=== PATIENT | male | born 1965 | race Caucasian/White ===

== ENCOUNTER 2020-04-28 05:40 | Inpatient (IN) | payer MEDICAID, SELFPAY ==
[~2020-04-28] VITALS: Ht 175.3 cm; Wt 119.3 kg
--- NOTE | 2020-04-28 00:01 | NUR ---
PT ASKING FOR FOOD; AMBULATORY; TOLD HIM TO GO BACK TO HIS ROOM; FALL RISK; WITH BILATERAL EDEMA ON L.E Addendum: 04/29/20 at 0208 by Virginie Casas RN ASHLI NOTE
[~2020-04-28 05:40] MED LIST: ACET-8386 PO; AMLO5TAB PO; BACL10TA4 PO; LISI2.5T12 PO; ZOLP5TAB1 PO
--- NOTE | 2020-04-28 05:45 | NUR ---
PT TAKEN TO BED 3
[2020-04-28 05:57] VITALS: BP 132/89
--- NOTE | 2020-04-28 05:57 | NUR ---
Dr. Barksdale examining patient.
[2020-04-28] MEDS ORDERED: guaiFENesin DM 200/20 MG-10 ML 10 ML UDC PO ONE (06:00)
--- NOTE | 2020-04-28 06:00 | NUR ---
PT PLACED ON BEDSIDE MONITOR
--- NOTE | 2020-04-28 06:21 | NUR ---
XR AT BEDSIDE.
[2020-04-28 06:25] LABS: BASOPHILS # (AUTO) 0.1 K/uL (0.00-0.22); BASOPHILS % (AUTO) 1.1 % (0.0-2.0); EOSINOPHILS # (AUTO) 0.2 K/uL (0-0.4); EOSINOPHILS % (AUTO) 3.2 % (0.0-4.0); HEMATOCRIT 35.9 % (36-52); HEMOGLOBIN 11.9 g/dL (12.0-18.0); LYMPHOCYTES # (AUTO) 0.9 K/uL (2.0-11.5); LYMPHOCYTES % (AUTO) 16.1 % (20.5-51.1); MEAN CORPUSCULAR HEMOGLOBIN 31 pg (27-31); MEAN CORPUSCULAR HGB CONC 33 g/dL (33-37); MEAN CORPUSCULAR VOLUME 94.3 fL (80-94); MONOCYTES # (AUTO) 0.6 K/uL (0.8-1.0); MONOCYTES % (AUTO) 10.4 % (1.7-9.3); NEUTROPHILS # (AUTO) 3.8 K/uL (1.8-7.7); NEUTROPHILS % (AUTO) 69.2 % (42.2-75.2); PLATELET COUNT (AUTO) 203 K/uL (140-450); RED BLOOD CELL COUNT(AUTO) 3.81 MIL/uL (4.20-6.10); RED CELL DISTRIBUTION WIDTH 15.5 % (11.6-13.7); WHITE BLOOD COUNT (AUTO) 5.5 K/uL (4.8-10.8)
[2020-04-28 06:39] LABS: ALBUMIN 3.2 g/dL (3.4-5.0); ANION GAP 8.3 (8-16); CARBON DIOXIDE 28.9 mmol/L (21-32); POTASSIUM 3.2 mmol/L (3.5-5.1)
--- NOTE | 2020-04-28 06:39 | NUR ---
PT HAS BEEN HAVING SOB AND COUGH X 1 WEEK. COUGH NONPRODUCTIVE. HX OF CHF, LUNG SOUNDS DIMINISHED, O2 SAT 97% RA. AFEBRILE. PT HAS BILATERAL LOWER EXTREMITY SWELLING WITH + 2 PITTING EDEMA. SKIN IS WARM TO TOUCH AND PAINFUL. SKIN IS INTACT, NO DRAINGE/DISCHARGE. PT IS SUPPOSE TO TAKE LASIX OR BUMEX HOWEVER HE DOES NOT TAKE ON A DAILY BASIS, PT HAS A LOT OF WATER RETENTION. DENIES N/V. BED IN LOWEST POSITION AND SIDERAIL UP X 1. NKA HX - CHF, DVT, HLD
--- NOTE | 2020-04-28 06:57 | NUR ---
PT UNABLE TO PROVIDE UA AT THIS TIME. CUP AT BEDSIDE.
[2020-04-28] MEDS ORDERED: FUROSEMIDE 40 MG/4 ML VIAL IVP ONE (06:59)
[2020-04-28] MEDS ORDERED: FUROSEMIDE 40 MG/4 ML VIAL IVP SCH (07:02)
--- NOTE | 2020-04-28 07:08 | NUR ---
PT PROVIDED WITH A URINAL AT BEDSIDE. PT STATES HE'S UNABLE TO USE A URINAL DUE TO EXTREME SWELLING AND WATER RETENTION TO PENIS. CALLED EVS TO BRING BEDSIDE COMMODE.
--- NOTE | 2020-04-28 07:18 | NUR ---
REPORT GIVEN TO VIJAY RIVERA.
--- NOTE | 2020-04-28 07:18 | NUR ---
RECEIVED REPORT FROM MIGUEL NAGY PT IN BED AOX4 , AFIBRILE , AMBULATORY WITH STEADY GAIT , COMFORTABLE IN BED WITH STABLE VS. SIDE RAIL UP X1 AND LOCK AT LOWEST POSITION.
--- NOTE | 2020-04-28 07:20 | NUR ---
JOYCE COVID TEST DONE , MATTHEW LEAL RECEIVED SPECIMEN.
--- NOTE | 2020-04-28 07:56 | NUR ---
URINE DIP STICK RESULT SHOWED TO DR KRISHNAMURTHY.
[2020-04-28] MEDS ORDERED: ONDANSETRON 4 MG/2 ML VIAL IM/IVP PRN (08:15)
[2020-04-28] MEDS ORDERED: ACETAMINOPHEN 325 MG TAB PO PRN (08:15)
[2020-04-28] MEDS ORDERED: HYDROcodone/APAP 5/325 MG 1 TAB TAB PO PRN (08:15)
[2020-04-28] MEDS ORDERED: DOCUSATE SODIUM 100 MG GELCAP PO PRN (08:15)
[2020-04-28] MEDS ORDERED: MAG SULF 2000 MG/WATER PREMIX 50 ML IV PRN (08:25)
[2020-04-28] MEDS ORDERED: POTASSIUM CHLORIDE 10 MEQ TABER PO PRN (08:25)
--- NOTE | 2020-04-28 08:27 | NUR ---
DR TAMAYO AT BEDSIDE EVALAUTING PT.
--- NOTE | 2020-04-28 08:55 | NUR ---
Patient will be admitted to care of Dr riggins. Admited to [facility]. Will go to room 112A. Belongings list completed. Report to dong jensen.
--- NOTE | 2020-04-28 09:00 | NUR ---
RECEIVED REPORT FROM ER NURSE. PATIENT IS TRANSFERRED TO FLOOR BY RADHA. HOMELESS STATUS NOTED. CHIEF COMPLAINT OF SOB AND COUGH. DIAGNOSED WITH CHF, PLEURAL EFFUSION. RIGHT SIDE CRACKLE LUNG SOUND NOTED. BILATERAL LOWER EXTREMITIES EDEMA. STRICT I&O. VITAL SIGNS CHECKED. DRY COUGH NOTED. PATIENT IS ASLEEP, DROWSY. SWOLLEN SCROTUM NOTED. FOOT SOLE ROUGH SKIN, DIRTY. IV SITE RIGHT AC 20 G, INTACT. MRSA NARES COLLECTED AND WILL SEND TO THE LAB. PLAN OF CARE DISCUSSED. SAFETY MEASURES IN PLACE, CALL LIGHT WITHIN REACH. WILL CONTINUE TO MONITOR.
[2020-04-28 09:13] LABS: APPEARANCE,URINE CLEAR (CLEAR); BLOOD, URINE NEGATIVE (NEGATIVE); COLOR,URINE YELLOW (YELLOW); PH,URINE 6.5 (5.0-9.0); UGLUCOSE NEGATIVE (NEGATIVE)
[2020-04-28 09:14] LABS: BILIRUBIN,URINE NEGATIVE (NEGATIVE); LEUKOCYTE ESTERASE ,URINE NEGATIVE (NEGATIVE); NITRITE, URINE NEGATIVE (NEGATIVE)
[2020-04-28 09:29] LABS: BARBITURATE, URINE NEGATIVE ng/ml (NEG <=200); BENZODIAZEPINE, URINE NEGATIVE ng/mL (NEG <=200); CANNABINOID, URINE NEGATIVE ng/mL (NEG <=50); COCAINE, URINE NEGATIVE ng/mL (NEG <=300); OPIATE, URINE NEGATIVE ng/mL (NEG <=2000); PHENCYCLIDINE SCREEN,URINE NEGATIVE ng/mL (NEG <=25)
[2020-04-28] MEDS: NACL 0.9% 1,000 ML IV SCH (10:00)
--- NOTE | 2020-04-28 10:15 | NUR ---
PATIENT SLEEPING IN BED, VISIBLE CHEST RISE AND FALLS. TRYING TO GIVE HEPARIN ORDERED, AND POTASSIUM DUE TO POTASSIUM LEVEL 3.2. HOWEVER, UNABLE TO WAKE UP THE PATIENT RIGHT NOW. RR 20, O2 SAT 975% IN RA. WILL CONTINUE TO MONITOR AND GIVE MEDICATION WHEN PATIENT IS AWAKE.
--- NOTE | 2020-04-28 10:35 | NUR ---
DC PLANN[age] YRS OLD MALE HOMELESS PATIENT WAS ADMITTED FROM ER WITH A DX OF ACUTE ON CHRONIC CHF, PLEURAL EFFUSION. PT HAS A HX OF CHF, PNEUMONIA AND COPD. CXR SHOWED PROBABLE CHF WITH RT PLEURAL EFFUSION MASSIVE CARDIOMEGALY. PNEUMONIA IS NOT EXCLUDED. RAPID COVID TEST NEGATIVE. STARTED IVF, LASIX IV , AND CONTINUE HOME MEDS. CONSULTED WITH CARDIO FOR CHF. DC PLAN TO GO HOME WHEN STABLE CM TO FOLLOW Addendum: 04/30/20 at 1132 by Yanelis Meeks CM DC PLANNING: SEEN BY CARDIO AND UROLOGIST. ECHO 10-15% , CONTINUE DIURESIS WITH IV LASIX, PER DR THAPA CONTINUE FLOMAX 0.4MG IRRIGATE CATHETER PRN. VOID TRAIL ONCE STABLE. DC PLAN SW TO ASSESS FOR HOMELESSNESS. CM TO FOLLOW
[2020-04-28 11:39] LABS: PROTHROMBIN TIME 11.9 secs (10.8-13.4)
[2020-04-28 11:50] LABS: CHOL/HDL RATIO 3.1 (1-4.5); PHOSPHORUS 3.6 mg/dL (2.5-4.9); THYROID STIMULATING HORMONE 0.01 uIU/mL (0.34-3.74)
--- NOTE | 2020-04-28 12:05 | NUR ---
TRIED TO INSERT EASTMAN, PER MD ORDER. HOWEVER, DUE TO PATIENT'S SCROTUM EDEMA, FAILED TO INSERT. MD INFORMED. STRICT I&O. OFFER PATIENT URINAL TO MONITOR URINAL OUTPUT. SAFETY MEASURES IN PLACE, WILL CONTINUE TO MONITOR
[2020-04-28] MEDS ORDERED: NITROGLYCERIN 0.4 MG TAB SL PRN (13:30)
--- NOTE | 2020-04-28 13:52 | NUR ---
PATIENT IS AWAKE, POTASSIUM GIVEN FOR POTASSIUM LEVEL 3.2. EDUCATION PROVIDED, PATIENT TOLERATED WELL. SAFETY MEASURES IN PLACE, WILL CONTINUE TO MONITOR.
[2020-04-28] MEDS ORDERED: LACTULOSE 20 GM/30 ML UDC PO SCH (14:26)
--- NOTE | 2020-04-28 15:55 | NUR ---
PATIENT HAS BEEN SCREENED AND CATEGORIZED MODERATE NUTRITION RISK. PATIENT WILL BE SEEN WITHIN 3-5 DAYS OF ADMISSION. 04/30/20 05/02/[address]
[2020-04-28 16:00] VITALS: BP 123/82
[2020-04-28] MEDS: FUROSEMIDE 40 MG/4 ML VIAL IVP SCH (17:43)
--- NOTE | 2020-04-28 17:47 | NUR ---
LASIX GIVEN VIA IVP. EDUCATION PROVIDED, PATIENT TOLERATED WELL, SAFETY MEASURES IN PLACE, WILL CONTINUE TO MONITOR.
--- NOTE | 2020-04-28 18:35 | NUR ---
IV ACCIDENTLY PULLED OUT BY THE PATIENT. RESTART NEW IV, 22 G AT RIGHT HAND WITH BLOOD RETURN. PATIENT TOLERATED WELL. SAFETY MEASURES IN PLACE, WILL CONTINUE TO MONITOR.
--- NOTE | 2020-04-28 19:28 | NUR ---
ENDORSED PATIENT TO DESKTOP ADMINISTRATOR RN FOR CONTINUITY OF CARE.
--- NOTE | 2020-04-28 19:29 | NUR ---
RECEIVED REPORT FROM AM NURSE. HOMELESS STATUS NOTED.PATIENT IS SITTING UP ON BED, CAME FROM THE BATHROOM,AMBULATORY. RIGHT SIDE CRACKLE LUNG SOUND NOTED. BILATERAL LOWER EXTREMITIES EDEMA. STRICT I&O, EXPLAINED AND EDUCATED PT. DRY COUGH NOTED. SWOLLEN SCROTUM NOTED.EASTMAN CATHETER INSERTION ATTEMPTED 2X, FAILED. FOOT SOLE ROUGH SKIN, DIRTY. IV SITE RIGHT HAND G 22, INTACT. PLAN OF CARE DISCUSSED. SAFETY MEASURES IN PLACE, CALL LIGHT WITHIN REACH. WILL CONTINUE TO MONITOR.
--- NOTE | 2020-04-28 19:33 | NUR ---
BILATERAL LE SEVERE EDEMA; 4 + PITTING EDEMA ; FOOT SOLE COVERED IN BLACK DIRT AND CRACKED
[2020-04-28] MEDS: ATORVASTATIN 20 MG TAB PO SCH (21:23)
[2020-04-28] MEDS: METOPROLOL 25 MG TAB PO SCH (21:23)
--- NOTE | 2020-04-28 22:30 | NUR ---
INFORMED DR. TAFOYA THAT PT'S EASTMAN CATHETER WAS NOT INSERTED SINCE THIS A.M. [address] TAFOYA ORDERED A BLADDER SCAN BEDSIDE.AND UROLOGY CONSULT, DR. THAPA
--- NOTE | 2020-04-28 23:23 | NUR ---
BLADDER SCAN DONE= 286 ML NOTED WILL ENDORSE TO NEXT SHIFT FOE DR. TAMAYO/ DR. THAPA UROLOGIST TO KNOW.
--- NOTE | 2020-04-29 00:01 | NUR ---
PT ASKING FOR FOOD/ SNACKS; NO LIWQUID GIVEN ONLY URSZULA; HX; DM. AMBULATORY; TOLD HIM TO GO BACK TO HIS ROOM; FALL RISK; WITH BILATERAL EDEMA ON L.E
--- NOTE | 2020-04-29 02:00 | NUR ---
PT SLEEPING, COMFORTABLE IN SEMI FOWLERS POSITION, NOT IN RESPIRATORY DISTRESS; NO SOB. DENIES PAIN.
--- NOTE | 2020-04-29 04:15 | NUR ---
COMFORTABLE IN SEMI FOWLERS POSITION, SLEEPING, NOT IN RESPIRATORY DISTRESS; NO SOB. NO S/ SX'S OF PAIN.
[2020-04-29 04:23] VITALS: BP 120/76
[2020-04-29 06:19] LABS: BASOPHILS # (AUTO) 0.1 K/uL (0.00-0.22); BASOPHILS % (AUTO) 1.1 % (0.0-2.0); EOSINOPHILS # (AUTO) 0.2 K/uL (0-0.4); EOSINOPHILS % (AUTO) 3.8 % (0.0-4.0); HEMATOCRIT 38.9 % (36-52); HEMOGLOBIN 12.8 g/dL (12.0-18.0); LYMPHOCYTES % (AUTO) 17.9 % (20.5-51.1); MEAN CORPUSCULAR HEMOGLOBIN 31 pg (27-31); MEAN CORPUSCULAR HGB CONC 33 g/dL (33-37); MEAN CORPUSCULAR VOLUME 94.7 fL (80-94); MONOCYTES # (AUTO) 0.6 K/uL (0.8-1.0); NEUTROPHILS # (AUTO) 3.5 K/uL (1.8-7.7); NEUTROPHILS % (AUTO) 65.2 % (42.2-75.2); PLATELET COUNT (AUTO) 201 K/uL (140-450); RED CELL DISTRIBUTION WIDTH 15.7 % (11.6-13.7); WHITE BLOOD COUNT (AUTO) 5.4 K/uL (4.8-10.8)
[2020-04-29 06:42] LABS: MAGNESIUM 1.8 mg/dL (1.8-2.4); PHOSPHORUS 3.8 mg/dL (2.5-4.9)
[2020-04-29 06:46] LABS: ANION GAP 9.3 (8-16); CARBON DIOXIDE 29.5 mmol/L (21-32); POTASSIUM 3.8 mmol/L (3.5-5.1)
--- NOTE | 2020-04-29 06:50 | NUR ---
PT SLEEPING, MADE PT COMFORTABLE, PLACED BLANKETS NOT IN RESPIRATORY DISTRESS, WILL ENDORSE TO NEXT SHIFT
--- NOTE | 2020-04-29 07:00 | NUR ---
RECEIVED REPORT FROM COMPLAINT ANALYST NURSE PERRI-MIGUEL. PT RESTING IN BED, AOX3-CONFUSED, ON ROOM AIR WITH LEFT HAND #[id number]. SKIN INTACT WITH BLE EDEMA AND LARGE ABD. DISCUSSED PLAN OF CARE AND PT VERBALIZED UNDERSTANDING. CALL LIGHT WITHIN REACH. NO S/S OF RESPIRATORY DISTRESS OR DISCOMFORT NOTED AT THIS TIME. WILL CONTINUE TO MONITOR.
[2020-04-29 08:07] LABS: T4 (THYROXINE) 8.9 ug/dL (4.5-12.0)
[2020-04-29] MEDS: NACL 0.9% 1,000 ML IV SCH (08:14)
--- NOTE | 2020-04-29 08:25 | NUR ---
EASTMAN CATHETER PLACED BY DR. LASHELL THAPA AT BEDSIDE.
[2020-04-29] MEDS: LACTULOSE 20 GM/30 ML UDC PO SCH (09:00)
[2020-04-29] MEDS: ASPIRIN 81 MG TAB.CHEW PO SCH (09:48)
[2020-04-29] MEDS: lisinopriL 5 MG TAB PO SCH (09:49)
[2020-04-29] MEDS: METOPROLOL 25 MG TAB PO SCH ×2 (09:49→21:00)
--- NOTE | 2020-04-29 09:49 | NUR ---
PT C/O PAIN DUE TO EASTMAN CATHETER INSERTION. NORCO GIVEN AND TOLERATED WELL. CALL LIGHT WITHIN REACH. NO S/S OF RESPIRATORY DISTRESS OR DISCOMFORT NOTED AT THIS TIME. WILL CONTINUE TO MONITOR.
[2020-04-29] MEDS: FUROSEMIDE 40 MG/4 ML VIAL IVP SCH ×2 (09:50→17:49)
--- NOTE | 2020-04-29 09:50 | NUR ---
SCHEDULED MEDICATIONS GIVEN AND TOLERATED WELL. CALL LIGHT WITHIN REACH. NO S/S OF RESPIRATORY DISTRESS OR DISCOMFORT NOTED AT THIS TIME. WILL CONTINUE TO MONITOR.
--- NOTE | 2020-04-29 11:00 | NUR ---
AIR BRAKE OPERATOR NOTE: Patient's Orientation Person Situation Place Time Information Provided By PATIENT Comments SW MET PATIENT AT BEDSIDE TO COMPLETE ASSESSMENT. PATIENT WAS PACING AND WAS AGITATED. PATIENT WAS UNCOOPERATIVE WITH ASSESSMENT AND PROVIDED SARCASTIC ANSWERS. SW VERIFIED DEMOGRAPHICS WITH PATIENT. Environmental Air Specialist, Realtionship and Phone Number MIKE WHITE [phone] [facility] Power of Light Armored Vehicle Officer No Does Patient Have a POLST No Identifying Problems Homelessness/Housing Explanation Of Identifying Problems PATIENT IS A 55-YEAR-OLD MALE ADMITTED FOR ACUTE ON CHRONIC CHF. PATIENT HAS PMHX OF CHF AND COPD. PATIENT WAS REPORTED TO BE HOMELESS. SW REFUSED RESOURCES AND WAS GUARDED WITH RESPONSES. SW INQUIRED ABOUT MENTAL HEALTH AND SUBSTANCE ABUSE. PATIENT STATED THAT HE USES METHAMPHETAMINES AND ALCOHOL TWICE A WEEK BUT REFUSED SUBSTANCE ABUSE RESOURCES AND ALL OTHER RELEVANT RESOURCES. PATIENT REPORTED NOT RECEIVING GOVERNMENT AID. PATIENT WAS AGITATED DURING ASSESSMENT AND DISCONTINUED ASSESSMENT. Admitted From HOMELESS Pre-Admission Level Of Functioning Status Independent/Ambulatory Prior Resources/Services Used In Last 12 Months No Prior Resources Used Prior DME No Prior DME Used Living Situation Homeless Other Living Situation/Comment PATIENT REFUSED HOMELESS RESOUCES. Home Support No Caregiver Issues Financial Issues No Known Financial Issue Referral To The Financial Counselor Needed No Factors/Needs Senior Living/Homeless Discharge Plan Comments TENTATIVE DISCHARGE IS FOR PATIENT TO COORDINATE LIVING ARRANGEMENTS AFTER DISCHARGE. DC Plan Status Initiated
--- NOTE | 2020-04-29 12:00 | NUR ---
PT SLEEPING IN BED. CALL LIGHT WITHIN REACH. NO S/S OF RESPIRATORY DISTRESS OR DISCOMFORT NOTED AT THIS TIME. WILL CONTINUE TO MONITOR.
--- NOTE | 2020-04-29 13:00 | NUR ---
PT RESTING IN BED. CALL LIGHT WITHIN REACH. NO S/S OF RESPIRATORY DISTRESS OR DISCOMFORT NOTED AT THIS TIME. WILL CONTINUE TO MONITOR.
--- NOTE | 2020-04-29 15:00 | NUR ---
PT CONTINUES TO REST IN BED. CALL LIGHT WITHIN REACH. NO S/S OF RESPIRATORY DISTRESS OR DISCOMFORT NOTED AT THIS TIME. WILL CONTINUE TO MONITOR.
--- NOTE | 2020-04-29 15:29 | NUR ---
SCHEDULED MEDICATION HEPARIN GIVEN AND TOLERATED WELL. CALL LIGHT WITHIN REACH. NO S/S OF RESPIRATORY DISTRESS OR DISCOMFORT NOTED AT THIS TIME. WILL CONTINUE TO MONITOR.
[2020-04-29 16:00] VITALS: BP 97/70
--- NOTE | 2020-04-29 16:30 | NUR ---
ASSISTED PT TO THE BATHROOM. PT HAD A LARGE BM AND ACCIDENTALLY PULLED OUT IV. PT REQUESTING SHOWER BEFORE RE-INSERTION OF IV. CALL LIGHT WITHIN REACH. NO S/S OF RESPIRATORY DISTRESS OR DISCOMFORT NOTED AT THIS TIME. WILL CONTINUE TO MONITOR.
--- NOTE | 2020-04-29 17:49 | NUR ---
NEW IV SITE LEFT FA #22G. SCHEDULED MEDICATION LASIX GIVEN AND TOLERATED WELL. CALL LIGHT WITHIN REACH. NO S/S OF RESPIRATORY DISTRESS OR DISCOMFORT NOTED AT THIS TIME. WILL CONTINUE TO MONITOR.
--- NOTE | 2020-04-29 19:25 | NUR ---
RECEIVED BEDSIDE REPORT FROM DAY SHIFT NURSE FOR CONTINUITY OF CARE. PT IS AWAKE AND ALERT. A&O X4. ON RA WITH BREATHING UNLABORED. ASSISTED PATIENT UPWARD IN BED AND REPOSITIONED PT. PT DENIES PAIN AT THIS TIME, ONLY WITH A LOT OF MOVEMENT FROM THE PERINEAL REGION. EASTMAN CATHETER IN PLACE, DAY SHIFT NURSE EMPTIED 1700 OUTPUT AT SHIFT REPORT. SKIN IS WARM, DRY, AND INTACT. PENILE, SCROTAL, ABDOMINAL, AND BILATERAL LEG SWELLING. STRICT I&O IN PLACE. IV IS IN THE LEFT FOREARM 22 GAUGE RUNNING TKO AT 5 ML PER HOUR. PLAN OF CARE DISCUSSED. BED IS IN THE LOWEST POSITION AND CALL LIGHT IS WITHIN REACH. Addendum: 04/29/20 at 1999 by Elizabet Cortez RN FLUIDS RUNNING TKO AT 10 ML PER HOUR PER ORDER; NOT 5 ML PER HOUR.
--- NOTE | 2020-04-29 21:20 | NUR ---
PT IS AWAKE. PERFORMED A PHYSICAL ASSESSMENT ON PT. PITTING EDEMA IN THE LOWER EXTREMITIES, PERINEAL, SCROTAL, AND ABDOMEN REGION. PT WAS CALM AND NO DISTRESS NOTED. PT DENIES PAIN. WILL CONTINUE TO MONITOR. EASTMAN CATHETER URINE OUTPUT IS NOW 500 ML.
--- NOTE | 2020-04-29 21:55 | NUR ---
DID NOT ADMINISTER METOPROLOL 12.5 MG BECAUSE THE PT'S BP WAS 110/65 AND HR WAS 91. PT IS STABLE AT THIS TIME.
--- NOTE | 2020-04-29 23:00 | NUR ---
PT STATED HE HAD A FALL RECENTLY OUTSIDE OF THE HOSPITAL AND SOMETIMES WALKS WITH A CANE. PT WAS PLACED ON FALL PRECAUTIONS. CHANGED GOWN TO YELLOW GOWN, PUT ON YELLOW SOCKS, PLACED ARMBAND ON PT, AND PLACED SIGNS ON THE BULLARD FOR FALL PRECAUTION. WILL CONTINUE TO MONITOR PT FOR UNSTEADY GAIT. PT IN BED IN SEMI FOWLERS POSITION NO DISTRESS NOTED.
[2020-04-29] MEDS: ATORVASTATIN 20 MG TAB PO SCH (23:06)
[2020-04-30] VITALS: BP 117/74
--- NOTE | 2020-04-30 00:30 | NUR ---
VS WERE TAKEN AND TEMP WAS 99.0 DEGREES FAHRENHEIT. IMPLEMENTED COOLING MEASURES FOR PT. PLACED ICE PACKS BEHIND NECK AND UNDERNEATH ARMPITS. BLANKETS WERE REMOVED. HEATER IN THE ROOM WAS SWITCHED TO COOL AIR. WILL CONTINUE TO MONITOR FOR FEVER.
--- NOTE | 2020-04-30 02:30 | NUR ---
PT IS AWAKE AND ALERT. ASSISTED PT IN REPOSITIONING IN BED. PT STATES HE NO LONGER HAS PAIN FROM THE PERINEAL REGION. URINE OUTPUT WAS 1600 ML AND EASTMAN WAS EMPTIED. IV IS PATENT AND INFUSING NS TKO. PT WAS GIVEN JELLO AND PUDDING REQUESTED. NEEDS HAVE BEEN MET.
--- NOTE | 2020-04-30 04:30 | NUR ---
ROUNDED ON PT. PT IS IN SEMI FOWLERS POSITION, AWAKE. NO COMPLAINTS AT THIS TIME. PT DENIES PAIN. CHEST RISE AND FALL IS SYMMETRICAL. BREATHING IS UNLABORED. BED IS IN THE LOWEST POSITION AND CALL LIGHT IS WITHIN REACH.
--- NOTE | 2020-04-30 06:15 | NUR ---
PT IS ASLEEP. NO DISTRESS AT THIS TIME AND NO PAIN NOTED. IV IS PATENT AND INFUSING. EASTMAN IS PATENT AND IN PLACE. FALL PRECAUTIONS ARE IN PLACE. BED IS IN THE LOWEST POSITION. PT IS STABLE.
[2020-04-30 06:59] LABS: BASOPHILS # (AUTO) 0.1 K/uL (0.00-0.22); EOSINOPHILS # (AUTO) 0.2 K/uL (0-0.4); EOSINOPHILS % (AUTO) 3.6 % (0.0-4.0); HEMATOCRIT 37.6 % (36-52); HEMOGLOBIN 12.4 g/dL (12.0-18.0); LYMPHOCYTES # (AUTO) 1.3 K/uL (2.0-11.5); LYMPHOCYTES % (AUTO) 20.3 % (20.5-51.1); MEAN CORPUSCULAR HEMOGLOBIN 31 pg (27-31); MEAN CORPUSCULAR HGB CONC 33 g/dL (33-37); MONOCYTES # (AUTO) 0.6 K/uL (0.8-1.0); MONOCYTES % (AUTO) 10.1 % (1.7-9.3); NEUTROPHILS # (AUTO) 4.1 K/uL (1.8-7.7); PLATELET COUNT (AUTO) 213 K/uL (140-450); RED CELL DISTRIBUTION WIDTH 15.5 % (11.6-13.7); WHITE BLOOD COUNT (AUTO) 6.3 K/uL (4.8-10.8)
--- NOTE | 2020-04-30 07:18 | NUR ---
ENDORSED PT TO DAY SHIFT NURSE FOR CONTINUITY OF CARE. PT IS STABLE AT THIS TIME. PLAN OF CARE DISCUSSED.
--- NOTE | 2020-04-30 07:20 | NUR ---
RECEIVED PATIENT FROM NIGHT NURSE. PATIENT SLEEPING IN BED BUT AROUSABLE. PATIENT IS ALERT AND RESPONSIVE. RESP EVEN AND UNLABORED ON ROOM AIR. DENIES OF PAIN OR DISTRESS AT THIS TIME. EASTMAN CATH NOTED IN PLACE. REPORT OF SWELLING TO LOWER BILATERAL, SCROTAL AND PENILE SWELLING. STRICT I/O. IV IN LFA TKO AT THIS TIME. FALL PRECAUTION OBSERVED. PLAN OF CARE DISCUSSED WITH PATIENT. PATIENT VERBALIZED UNDERSTANDING. SAFETY MEASURES IN PLACE. CALL LIGHT WITHIN REACH. WILL CONTINUE TO MONITOR.
[2020-04-30 07:21] LABS: ANION GAP 10.3 (8-16); CARBON DIOXIDE 33.7 mmol/L (21-32)
[2020-04-30 07:26] LABS: MAGNESIUM 1.9 mg/dL (1.8-2.4); PHOSPHORUS 3.6 mg/dL (2.5-4.9)
[2020-04-30 08:00] VITALS: BP 108/79
[2020-04-30] MEDS: NACL 0.9% 1,000 ML IV SCH (08:14)
[2020-04-30] MEDS: FUROSEMIDE 40 MG/4 ML VIAL IVP SCH ×2 (08:31→17:46)
[2020-04-30] MEDS: ASPIRIN 81 MG TAB.CHEW PO SCH (08:31)
[2020-04-30] MEDS: METOPROLOL 25 MG TAB PO SCH ×2 (08:32→21:53)
[2020-04-30] MEDS: LACTULOSE 20 GM/30 ML UDC PO SCH (08:33)
--- NOTE | 2020-04-30 08:47 | NUR ---
MORNING ROUTINE MEDICATIONS GIVEN. PATIENT TOLERATED WELL. EDEMA NOTED TO LOWER BILATERAL LEGS, NON PITTING, SCROTAL SWELL NOTED, LARGE ABDOMEN SOFT TO TOUCH NONTENDER. PATIENT DENIES OF PAIN AT THIS TIME. EASTMAN CATH IN PLACE. LFA 22 INFUSING WELL NS 10ML/HR. PATIENT IS UP IN BED EATING BREAKFAST. CALL LIGHT WITHIN REACH. WILL CONTINUE TO MONITOR. Addendum: 04/30/20 at 0920 by Tania Copeland RN CORRECTION: PITTING EDEMA NOTED TO LOWER BILATERAL LEGS.
[2020-04-30] MEDS ORDERED: LIDOCAINE OINTMENT 5% 35 GM TUBE TP SCH (09:30)
[2020-04-30] MEDS: lisinopriL 5 MG TAB PO SCH (09:56)
--- NOTE | 2020-04-30 11:09 | NUR ---
PATIENT IN BED SLEEPING. RESP EVEN AND UNLABORED ON ROOM AIR, CHEST RISING. PENDING PARACENTESIS BY BEDSIDE. NO NOTED ACUTE S/S DISTRESS AT THIS TIME. CALL LIGHT WITHIN REACH. WILL CONTINUE TO MONITOR.
--- NOTE | 2020-04-30 12:01 | NUR ---
DR ZAMORA AT BEDSIDE FOR US GUIDED PARACENTESIS.
[2020-04-30] MEDS ORDERED: SPIRONOLACTONE 50 MG TAB PO SCH (12:30)
--- NOTE | 2020-04-30 12:43 | NUR ---
US GUIDED PARACENTESIS DONE. 3.75L WITHDREW. SPECIMEN SENT TO LABS FOR STUDIES. PATIENT SLEEPING IN BED. NO NOTED DISTRESS AT THIS TIME. CALL LIGHT WITHIN REACH. WILL CONTINUE TO MONITOR.
[2020-04-30] MEDS ORDERED: ALBUMIN HUMAN 25% 100 ML IV SCH (12:45)
--- NOTE | 2020-04-30 14:04 | NUR ---
PATIENT ASSISTED TO THE BATHROOM PER REQUEST. PATIENT GETS FRUSTRATED EASILY D/T SWOLLEN SCROTUM WHICH IS CAUSING HIM MUCH DISCOMFORT. PATIENT CAN BE REDIRECTED AND ABLE TO FOLLOW COMMANDS. PATIENT WAS ASSISTED BACK TO BED AND NOW RESTING. ROUTINE MEDICATIONS GIVEN ORDERED. CALL LIGHT WITHIN REACH. WILL CONTINUE TO MONITOR.
[2020-04-30 16:00] VITALS: BP 133/82
--- NOTE | 2020-04-30 18:20 | NUR ---
PATIENT IS FRUSTRATED EVERY TIME HE MOVES AND THE EASTMAN IS CAUSING HIM DISCOMFORT. PATIENT IS REQUESTING TO HAVE HIS EASTMAN CATHETER OUT. PATIENT WAS MADE AWARE OF HIS EDEMA AND HE'S TAKING LASIX THAT MAY CAUSE HIM TO USE THE BATHROOM MORE OFTEN, SINCE HIS SCROTAL EDEMA IS ALSO CAUSING HIS DISCOMFORT. PATIENT STATED HE WILL BE ABLE TO GET UP AND USE THE BATHROOM NEEDED. HE JUST WANTS THE CATHETER OUT. PAGED DR TAFOYA ABOUT PATIENT'S CONCERN. WILL CONTINUE TO MONITOR.
--- NOTE | 2020-04-30 18:57 | NUR ---
RECEIVED ORDER TO DISCONTINUE EASTMAN CATHETER. ORDER CARRIED OUT.
--- NOTE | 2020-04-30 19:18 | NUR ---
PATIENT DECIDED NOT TO HAVE HIS EASTMAN DISCONTINUED. PATIENT STATED HE WILL LEAVE IT IN PLACE BECAUSE HE WANTS TO SLEEP AND NOT HAVING TO GET UP TO USE THE BATHROOM. ENDORSED PT TO NIGHT NURSE. PATIENT IN STABLE CONDITION.
--- NOTE | 2020-04-30 19:25 | NUR ---
RECEIVED CONTINUITY OF CARE FROM AM NURSE. PT IS STILL ON THE SIDE OF BED, IN STABLE CONDITION, BREATHING SPONTANEOUSLY ON ROOM AIR. PT IS A/OX4, IV IS PATENT, ASYMPTOMATIC, INTACT. SKIN IS WARM, DRY, INTACT. LUNGS ARE CTA. ALL STAFF TO OBSERVE STRICT I/O. ORIENTED PT TO STAFF AND CALL LIGHT. SAFETY PRECAUTIONS IN PLACE.
--- NOTE | 2020-04-30 21:05 | NUR ---
ADMINISTERED SCHEDULED MEDICATION. EDUCATION WAS GIVEN INCLUDING SIDE EFFECTS. PT TOLERATED IT WELL.
[2020-04-30 21:18] LABS: GLUCOSE,BODY FLUID 162 mg/dL
[2020-04-30] MEDS: ATORVASTATIN 20 MG TAB PO SCH (21:53)
[2020-04-30 22:14] LABS: ALBUMIN,BODY FLUID 1.4 g/dL
--- NOTE | 2020-04-30 23:11 | NUR ---
PT CALLED FOR A SNACK AND WAS PROVIDED. EMPTIED EASTMAN CATHETER BAG OF 2400ML.
[2020-05-01] VITALS: BP 116/50
--- NOTE | 2020-05-01 01:12 | NUR ---
PT ASKED FOR ICE CHIPS. GAVE HIM ICE CHIPS. PT IS IN STABLE [id number].
--- NOTE | 2020-05-01 03:12 | NUR ---
ADMINISTERED SCHEDULED MED. EDUCATION WAS GIVEN. PT TOLERATED IT WELL.
--- NOTE | 2020-05-01 05:16 | NUR ---
PT IS SLEEPING. NO SIGNS OF DISTRESS AT THIS TIME.
[2020-05-01 05:49] LABS: BASOPHILS % (AUTO) 0.8 % (0.0-2.0); EOSINOPHILS # (AUTO) 0.2 K/uL (0-0.4); EOSINOPHILS % (AUTO) 3.7 % (0.0-4.0); HEMATOCRIT 35.2 % (36-52); HEMOGLOBIN 11.8 g/dL (12.0-18.0); LYMPHOCYTES # (AUTO) 1.2 K/uL (2.0-11.5); LYMPHOCYTES % (AUTO) 20.5 % (20.5-51.1); MEAN CORPUSCULAR HEMOGLOBIN 31 pg (27-31); MEAN CORPUSCULAR HGB CONC 33 g/dL (33-37); MEAN CORPUSCULAR VOLUME 93.1 fL (80-94); MONOCYTES # (AUTO) 0.6 K/uL (0.8-1.0); MONOCYTES % (AUTO) 9.9 % (1.7-9.3); NEUTROPHILS # (AUTO) 3.7 K/uL (1.8-7.7); NEUTROPHILS % (AUTO) 65.1 % (42.2-75.2); PLATELET COUNT (AUTO) 195 K/uL (140-450); RED BLOOD CELL COUNT(AUTO) 3.78 MIL/uL (4.20-6.10); RED CELL DISTRIBUTION WIDTH 15.5 % (11.6-13.7); WHITE BLOOD COUNT (AUTO) 5.8 K/uL (4.8-10.8)
[2020-05-01 07:09] LABS: ANION GAP 5.3 (8-16); CARBON DIOXIDE 32.7 mmol/L (21-32); CREATININE 0.9 mg/dL (0.6-1.3)
[2020-05-01 07:15] LABS: MAGNESIUM 1.8 mg/dL (1.8-2.4); PHOSPHORUS 4.1 mg/dL (2.5-4.9)
--- NOTE | 2020-05-01 07:30 | NUR ---
RECEIVED REPORT FROM [facility] NURSE, ASSUMED CARE. PT RESTING COMFORTABLY WITH NO ADVERSE REACTIONS NOTED AND/OR REPORTED. PERSONAL BELONGINGS, BEDSIDE TABLE, CALL LIGHT WITHIN REACH. WILL CONTINUE TO MONITOR.
--- NOTE | 2020-05-01 07:52 | NUR ---
ENDORSED CARE TO AM NURSE. PT IS IN STABLE CONDITION.
[2020-05-01] MEDS ORDERED: TAMSULOSIN 0.4 MG CAP PO SCH (08:30)
[2020-05-01] MEDS: NACL 0.9% 1,000 ML IV SCH (08:53)
[2020-05-01] MEDS: FUROSEMIDE 40 MG/4 ML VIAL IVP SCH (08:53)
[2020-05-01] MEDS: ASPIRIN 81 MG TAB.CHEW PO SCH (08:53)
[2020-05-01] MEDS: LACTULOSE 20 GM/30 ML UDC PO SCH (08:54)
[2020-05-01] MEDS: lisinopriL 5 MG TAB PO SCH (08:55)
[2020-05-01] MEDS: METOPROLOL 25 MG TAB PO SCH (08:55)
[2020-05-01 08:59] LABS: APPEARANCE,UNSPUN,BODY FLUID SLIGHTLY HAZY (CLEAR); SPECIMENTYPE,BODY FLUID PARACENTESIS
[2020-05-01 09:00] LABS: APPEARANCE,SPUN,BODY FLUID CLEAR (CLEAR); COLOR,BODY FLUID PINK (LT YELLOW); TOTAL VOLUME,BODY FLUID 3100 mL
[2020-05-01] MEDS ORDERED: SPIRONOLACTONE 50 MG TAB PO SCH (09:00)
--- NOTE | 2020-05-01 09:02 | NUR ---
DISCONTINUED FC, PT TOLERATED WELL.
[2020-05-01 09:06] LABS: POLYNUCLEAR, BODY FLUID 2 %; RBC, BODY FLUID 1139 /cu. mm.; WBC, BODY FLUID 20 /cu. mm.
[2020-05-01] MEDS ORDERED: LISI10TA11 PO (10:07)
[2020-05-01] MEDS ORDERED: ATOR20TA40 PO (10:07)
[2020-05-01] MEDS ORDERED: TAMS0.4C96 PO (10:07)
[2020-05-01] MEDS ORDERED: METO25TA PO (10:07)
[2020-05-01] MEDS ORDERED: SPIR50TA PO (10:07)
[2020-05-01 12:55] VITALS: BP 100/56
[2020-05-01] MEDS ORDERED: FLU VACCINE QS2020-21 0.5 ML SYR IMVAC PRN (13:10)
--- NOTE | 2020-05-01 14:00 | NUR ---
PT DISCHARGED WITH BELONGINGS, DISCHARGE PAPERWORK SIGNED, HOMELESS WAIVER SIGNED, PT REFUSING HOMELESS SERVICES. BUS PASS GIVEN FOR TRANSPORT.
== END 2020-05-01 14:00 | disposition home or self-care (01) | DRG 812 ==
LOC: MED 05:40 → MTU 08:20 → OBSVTOIN 04-29 15:40
PROC: 0W9G3ZZ Drainage of Peritoneal Cavity, Percutaneous Approach (ICD-10-PCS; principal; 2020-04-30)
DX: T43.621A Poisoning by amphetamines, accidental (unintentional), initial encounter (principal); J69.0 Pneumonitis due to inhalation of food and vomit; I50.43 Acute on chronic combined systolic (congestive) and diastolic (congestive) heart failure; G92 Toxic encephalopathy; E44.1 Mild protein-calorie malnutrition; J44.9 Chronic obstructive pulmonary disease, unspecified; K72.90 Hepatic failure, unspecified without coma; I11.0 Hypertensive heart disease with heart failure; E87.6 Hypokalemia; Z20.828 Contact with and (suspected) exposure to other viral communicable diseases; E66.9 Obesity, unspecified; I27.20 Pulmonary hypertension, unspecified; I07.1 Rheumatic tricuspid insufficiency; Z68.38 Body mass index [BMI] 38.0-38.9, adult; Z59.0 Homelessness; Z87.891 Personal history of nicotine dependence; Z79.899 Other long term (current) drug therapy; Z83.3 Family history of diabetes mellitus; Z82.49 Family history of ischemic heart disease and other diseases of the circulatory system; Y92.89 Other specified places as the place of occurrence of the external cause; Z71.51 Drug abuse counseling and surveillance of drug abuser
CPT/HCPCS: 49083; 96374; 99285; G0378; 36415; 71045; 76705; 80048; 80053; 80305; 81003; 82140; 82150; 82945; 83036; 83615; 83690; 83735; 83880; 84100; 84134; 84157; 84436; 84443; 84484; 85025; 85610; 85730; 87070; 87075; 87081; 87116; 87190; 87205; 87206; 89051; 93005; 93925; 93970; 97116; 97161-GP; J1644; J1940; J2001; J7030; P9046; Q0092

== ENCOUNTER 2021-11-30 14:37 | Inpatient (IN) | payer MEDICAID ==
[~2021-11-30] VITALS: Ht 175.3 cm; Wt 113.4 kg
[~2021-11-30 14:37] MED LIST changes: -ACET-8386 PO; -AMLO5TAB PO; +ATOR20TA40 PO; -BACL10TA4 PO; +LISI-486 PO; -LISI2.5T12 PO; +METO25TA PO; +SPIR50TA PO; +TAMS0.4C96 PO; -ZOLP5TAB1 PO
[2021-11-30 14:57] VITALS: BP 133/84
--- NOTE | 2021-11-30 15:06 | NUR ---
PT W/C ASSISTED TO BED 8.
--- NOTE | 2021-11-30 15:49 | NUR ---
LAB AT BEDSIDE
[2021-11-30 16:10] LABS: BASOPHILS % (AUTO) 0.1 % (0.0-2.0); EOSINOPHILS # (AUTO) 0.2 K/uL (0-0.4); EOSINOPHILS % (AUTO) 3.5 % (0.0-4.0); HEMATOCRIT 38.6 % (36-52); HEMOGLOBIN 12.6 g/dL (12.0-18.0); LYMPHOCYTES # (AUTO) 0.8 K/uL (2.0-11.5); LYMPHOCYTES % (AUTO) 12.1 % (20.5-51.1); MEAN CORPUSCULAR HEMOGLOBIN 30 pg (27-31); MEAN CORPUSCULAR HGB CONC 33 g/dL (33-37); MEAN CORPUSCULAR VOLUME 92.4 fL (80-94); MONOCYTES # (AUTO) 0.6 K/uL (0.8-1.0); MONOCYTES % (AUTO) 10.2 % (1.7-9.3); NEUTROPHILS # (AUTO) 4.7 K/uL (1.8-7.7); NEUTROPHILS % (AUTO) 74.1 % (42.2-75.2); PLATELET COUNT (AUTO) 235 K/uL (140-450); RED BLOOD CELL COUNT(AUTO) 4.17 MIL/uL (4.20-6.10); RED CELL DISTRIBUTION WIDTH 16.1 % (11.6-13.7); WHITE BLOOD COUNT (AUTO) 6.4 K/uL (4.8-10.8)
--- NOTE | 2021-11-30 16:25 | NUR ---
PATIENT IS LAYING IN BED SLEEPING WITH NO SIGNS OF DISTRESS. ALL NEEDS MET.
[2021-11-30 16:32] LABS: ALBUMIN 3.6 g/dL (3.4-5.0); ANION GAP 11.9 (8-16); CARBON DIOXIDE 28.2 mmol/L (21-32); CREATININE 1.6 mg/dL (0.6-1.3); POTASSIUM 4.1 mmol/L (3.5-5.1); TOTAL BILIRUBIN 0.6 mg/dL (0.0-1.0)
[2021-11-30] MEDS ORDERED: MORPHINE SULFATE 4 MG/ML SYR IVP ONE (18:05)
[2021-11-30] MEDS ORDERED: FUROSEMIDE 100 MG/10 ML VIAL IVP ONE (18:05)
[2021-11-30] MEDS ORDERED: NACL 0.9% 1,000 ML IV SCH (18:15)
--- NOTE | 2021-11-30 18:29 | NUR ---
Patient will be admitted to care of DR TAMAYO. Admited to TELE. Will go to room 120B. Belongings list completed. Report to SHAMEKA.
--- NOTE | 2021-11-30 18:40 | NUR ---
PATIENT WAS ASSISTED TO THE RESTROOM VIA WHEELCHAIR.
--- NOTE | 2021-11-30 19:07 | NUR ---
NOTIFIED DR TAMAYO OF PATIENTS REFUSAL OF CT SCAN.
--- NOTE | 2021-11-30 19:15 | NUR ---
REPORT RECIEVED FROM [place] NURSE CLINICIAN. PT IS ADMITTED TO TELE 120B. PT IS ON MONITOR .
--- NOTE | 2021-11-30 19:19 | NUR ---
REPORT GIVEN TO MUSTAPHA OLIVO FOR TRANSFER OF CARE.
--- NOTE | 2021-11-30 19:25 | NUR ---
PT TRANSFERED VIA [employer] ON TELE MONITOR . REPORT TO BE GIVEN TO SHAMEKA RIVERA AT BEDSIDE.
--- NOTE | 2021-11-30 19:26 | NUR ---
The patient's care was reviewed and supervised by Debra Narvaez RN.
--- NOTE | 2021-11-30 19:45 | NUR ---
PATIENT WAS BROUGHT TO THE UNIT FROM ER VIA GURNEY AAOX3. ON ROOM AIR. NO S/S OF RESPIRATORY DISTRESS. AMBULATORY. LUNGS CLEAR ON AUSCULTATION. BOWEL SOUNDS PRESENT IN ALL 4 QUADRANT. SKIN IS INTACT. PITTING EDEMA +2 PRESENT TO BILATERAL LOWER EXTREMITY. ALL SAFETY PRECAUTIONS ARE IN PLACE. CALL LIGHT WITHIN REACH. NO COMPLAINTS OF PAIN AT THIS TIME. MRSA SCREENING DONE. WILL CONTINUE TO MONITOR PT.
[2021-11-30] MEDS ORDERED: MECLIZINE 25 MG TAB PO SCH (21:00)
--- NOTE | 2021-11-30 21:34 | NUR ---
DR. TAMAYO MADE AWARE REGARDING PT REFUSED CT HEAD.
[2021-12-01] VITALS: BP 106/70
--- NOTE | 2021-12-01 01:39 | NUR ---
PATIENT ASKED FOR FOOD, OFFERED SANDWICH AND JUICE, WAS THANKFUL.
[2021-12-01 04:00] VITALS: BP 117/73
[2021-12-01 05:16] LABS: BASOPHILS # (AUTO) 0.1 K/uL (0.00-0.22); BASOPHILS % (AUTO) 1.2 % (0.0-2.0); EOSINOPHILS # (AUTO) 0.3 K/uL (0-0.4); EOSINOPHILS % (AUTO) 5.2 % (0.0-4.0); HEMATOCRIT 40.6 % (36-52); HEMOGLOBIN 13.2 g/dL (12.0-18.0); LYMPHOCYTES # (AUTO) 1.1 K/uL (2.0-11.5); LYMPHOCYTES % (AUTO) 18.3 % (20.5-51.1); MEAN CORPUSCULAR HEMOGLOBIN 30 pg (27-31); MEAN CORPUSCULAR HGB CONC 33 g/dL (33-37); MEAN CORPUSCULAR VOLUME 93.5 fL (80-94); MONOCYTES # (AUTO) 0.7 K/uL (0.8-1.0); MONOCYTES % (AUTO) 11.2 % (1.7-9.3); NEUTROPHILS # (AUTO) 3.9 K/uL (1.8-7.7); NEUTROPHILS % (AUTO) 64.1 % (42.2-75.2); PLATELET COUNT (AUTO) 216 K/uL (140-450); RED BLOOD CELL COUNT(AUTO) 4.34 MIL/uL (4.20-6.10); WHITE BLOOD COUNT (AUTO) 6.1 K/uL (4.8-10.8)
[2021-12-01 05:36] LABS: ANION GAP 12.7 (8-16); CARBON DIOXIDE 29.5 mmol/L (21-32); CREATININE 1.4 mg/dL (0.6-1.3); POTASSIUM 4.2 mmol/L (3.5-5.1)
--- NOTE | 2021-12-01 07:27 | NUR ---
PATIENT IS STABLE. BEDSIDE ENDORSEMENT GIVEN TO AM NURSE FOR CONTINUITY OF CARE.
--- NOTE | 2021-12-01 07:28 | NUR ---
RECEIVED REPORT FROM MOTOR VEHICLE DISPATCHER NURSE PATIENT LYING DOWN IN BED SLEEPING, AROUSABLE BY VOICE. NO DISTRESS NOTED. DENIES ANY PAIN, DIZZINESS. IV SITE INTACT, PATENT, AND INFUSING IVF PER MD ORDERS. REVIEWED PLAN OF CARE WITH PATIENT. VERBALIZED UNDERSTANDING. SAFETY MEASURES IN PLACE, CALL LIGHT WITHIN REACH. WILL CONTINUE TO MONITOR.
[2021-12-01 08:00] VITALS: BP 110/62
[2021-12-01] MEDS ORDERED: MAG SULF 2000 MG/WATER PREMIX 50 ML IV PRN (09:25)
[2021-12-01] MEDS ORDERED: POTASSIUM CHLORIDE 10 MEQ TABER PO PRN (09:25)
[2021-12-01] MEDS ORDERED: MECLIZINE 25 MG TAB PO PRN (09:25)
--- NOTE | 2021-12-01 09:54 | NUR ---
PATIENT LYING DOWN IN BED SLEEPING, AROUSABLE BY VOICE. NO DISTRESS NOTED. DENIES DIZZINESS. WILL CONTINUE TO MONITOR.
--- NOTE | 2021-12-01 11:42 | NUR ---
PATIENT HAS BEEN SCREENED AND CATEGORIZED MODERATE NUTRITION RISK. PATIENT WILL BE SEEN WITHIN 3-5 DA[address] OF ADMISSION. AT[address]
[2021-12-01 12:00] VITALS: BP 110/59
--- NOTE | 2021-12-01 12:30 | NUR ---
MIKE ATTEMPTED TO MEET WITH PATIENT AT BEDSIDE. PATIENT STRUGGLED TO ANSWER SW PROMPTS. MIKE REDIRECTED PATIENT SEVERAL TIMES, HOWEVER PATIENT CONTINUED TO STRUGGLE WITH SW PROMPTS. CAME IN TO MEET WITH PATIENT. MIKE WILL FOLLOW UP Addendum: 12/06/21 at 1553 by [place] MARTIN MIKE FIELDED CALL FROM PATIENTS COUSIN, KATHY CHRISTENSEN. MIKE PROVIDE MR. YUAN WITH AN UPDATE ON PATIENT DC PLANS . MR YUAN WAS REQUESTING THAT PATIENT BE HELD OVER [place] HE WAS [place] TOWN AND WAS UNABLE TO MAKE ARRANGEMENTS. MIKE EXPLAINED TO MR YUAN THAT PATIENT WAS MEDICALLY CLEARED AND HAD BEEN CLEARED BY PSYCH FOR DC. MIKE PROVIDED MR. YUAN WITH SUBSTANCE USE/ALCOHOL RESOURCES,HOMELESS RESOURCES, EMERGENCY ASSISTANCE, WELL, MENTAL HEALTH RESOURCES VIA EMAIL, REQUESTED BY MR. CHRISTENSEN. MR YUAN REPORTED THAT HE WOULD REFER TO RESOURCES AND IDENTIFY PLACEMENT FOR PATIENT TO BE DC TO. MR CHRISTENSEN OUTREACHED TO MIKE SEVERAL MINUTES LATER AND REPORTED THAT [facility] HAD ACCEPTED PATIENT INTO THEIR REHAB PROGRAM AND WOULD PROVIDE PATIENT WITH TRANSPORTATION. SHARLENE ARRIVED TO FIELD CLERK PATIENT APPROX 1 HR LATER. MIKE PROVIDED PATIENT WITH ADDITIONAL RESOURCES TO TAKE WITH HIM THAT INCLUDED HOMELESS, SUBSTANCE USE, EMERGENCY ASSISTANCE AND MENTAL HEALTH RESOURCES. Addendum: 12/06/21 at 1554 by [place] MARTIN ABOVE NOTE IS LATE ENTRY FOR Monday12/03/21 AT APPROX 145PM
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
[2021-12-01 16:00] VITALS: BP 105/61
--- NOTE | 2021-12-01 19:30 | NUR ---
RECEIVED REPORT AT BEDSIDE FROM MARISEL RIVERA DAYSHIFT NURSE FOR CONTINUITY OF CARE, PT IN BED ASLEEP WITH NO S/S OF PAIN OR DISTRESS NOTED. PT IS ON ROOM AIR RESPIRATIONS EVEN AND UNLABORED. PT HAS NO GOWN ON AND COMPLETED HIS DINNER AT BEDSIDE. HE HAS A RIGHT F/A 22G INTACT AND SALINE LOCKED. ALL UNIVERSAL FALLS PRECAUTIONS IN PLACE.
--- NOTE | 2021-12-01 19:37 | NUR ---
GAVE REPORT TO FOOD TECHNOLOGIST NURSE FOR CONTINUITY OF CARE. PATIENT IN STABLE CONDITION.
--- NOTE | 2021-12-01 20:30 | NUR ---
PT UP OUT OF BED WALKING AROUND AND SPEAKING WITH STAFF ABOUT ANYTHING AND EVERYTHING. PT ASKED ABOUT A PT LOUNGE, HOWEVER EXPLAINED TO PT THAT THERE IS NO P[T LOUNGE. PT REDIRECTED TO ROOM SEVERAL TIMES DUE TO CONCERN FOR PT ADMISSION OF SYNCOPE. PT SAID THAT HE WAS ABLE TO AMBULATE FINE AND THAT HE DOES NOT FEEL DIZZY. PT CONTINUES TO SPEAK TO STAFF AND HOLD THEM UP FROM THEIR JOBS. PT EVENTUALLY WENT BACK TO HIS ROOM .
[2021-12-01 20:53] LABS: APPEARANCE,URINE CLEAR (CLEAR); BILIRUBIN,URINE NEGATIVE (NEGATIVE); BLOOD, URINE TRACE-I (NEGATIVE); COLOR,URINE YELLOW (YELLOW); LEUKOCYTE ESTERASE ,URINE NEGATIVE (NEGATIVE); NITRITE, URINE NEGATIVE (NEGATIVE); UGLUCOSE NEGATIVE (NEGATIVE)
[2021-12-01 21:00] VITALS: BP 116/76
[2021-12-01 21:14] LABS: RBC,URINE NONE SEEN /HPF (0-5); WBC,URINE NONE SEEN /HPF (0-5)
--- NOTE | 2021-12-01 21:40 | NUR ---
MD FRIEDMAN HAD A PSYCH CONSULT OVER TELEPYSCH WITH PT IN HIS ROOM.
--- NOTE | 2021-12-01 22:00 | NUR ---
MD YANEZ ORDERED DEPAKOTE FOR PT NOW AND AT HS TOMORROW. PT GIVEN ORDERED LIPITOR; LOPRESSOR AND ORDERED DEPAKOTE. PT DECLINED TO HAVE HEPARIN. PT VERY TALKATIVE AND WOULD CONTINUE TO TALK ABOUT PAST HOSPITAL EXPERIENCES AND CONCERN FOR GOING TO A SNF. PT WILL CONTINUE TO KEEP TALKING UNLESS YOU INTERRUPT HIM. PT DID EVENTUALLY VERBALIZED UNDERSTANDING OF ORDERED MEDICATION. REVIEWED IMAGES OF RENAL US. PT ALSO NOTED WITH BILATERAL EDEMA. PT DOES HAVE HX OF CHF, BPH AND CONCERN FOR PRE RENAL AZETOMIA. REVIEWED PT TESTS AND CONCERNS. PT GIVEN SNACK REQUESTED. PT HAD NO C/O OF DIZZINESS. ALL ORDERED PRECAUTIONS IN PLACE.
[2021-12-01] MEDS ORDERED: DIVALPROEX 500 MG TABEC PO SCH (22:05)
[2021-12-01] MEDS ORDERED: CRUSHER, PILL MC ONE (22:17)
[2021-12-01] MEDS: METOPROLOL 25 MG TAB PO SCH (22:50)
[2021-12-01] MEDS: ATORVASTATIN 20 MG TAB PO SCH (22:50)
[2021-12-02] VITALS: BP 116/76
--- NOTE | 2021-12-02 00:43 | NUR ---
DUE TO CHANGE OF ASSIGNMENT, REPORT GIVEN TO ILIA RN FOR CONTINUITY OF CARE.
--- NOTE | 2021-12-02 00:45 | NUR ---
RECEIVED REPORT FROM MADELINE FOR CONTINUITY OF CARE. PT IS AWAKE NOT IN ANY ACUTE DISTRESS. PT IS STABLE.
--- NOTE | 2021-12-02 02:49 | NUR ---
PT IS SLEEPING COMFORTABLY IN BED. PT IS NOT IN ANY DISTRESS. BREATHING EVEN AND UNLABORED. CALL LIGHT WITHIN REACH. ALL SAFETY MEASURES TAKEN. WILL CONTINUE TO MONITOR THE PT
[2021-12-02 04:00] VITALS: BP 109/76
[2021-12-02 05:30] LABS: BASOPHILS # (AUTO) 0.1 K/uL (0.00-0.22); EOSINOPHILS # (AUTO) 0.2 K/uL (0-0.4); EOSINOPHILS % (AUTO) 3.5 % (0.0-4.0); HEMATOCRIT 38.7 % (36-52); HEMOGLOBIN 12.6 g/dL (12.0-18.0); LYMPHOCYTES # (AUTO) 1.3 K/uL (2.0-11.5); LYMPHOCYTES % (AUTO) 18.8 % (20.5-51.1); MEAN CORPUSCULAR HEMOGLOBIN 30 pg (27-31); MEAN CORPUSCULAR HGB CONC 33 g/dL (33-37); MEAN CORPUSCULAR VOLUME 92.9 fL (80-94); MONOCYTES # (AUTO) 0.6 K/uL (0.8-1.0); MONOCYTES % (AUTO) 8.2 % (1.7-9.3); NEUTROPHILS # (AUTO) 4.9 K/uL (1.8-7.7); NEUTROPHILS % (AUTO) 68.5 % (42.2-75.2); PLATELET COUNT (AUTO) 208 K/uL (140-450); RED BLOOD CELL COUNT(AUTO) 4.17 MIL/uL (4.20-6.10); RED CELL DISTRIBUTION WIDTH 16.6 % (11.6-13.7); WHITE BLOOD COUNT (AUTO) 7.1 K/uL (4.8-10.8)
[2021-12-02 05:57] LABS: ANION GAP 10.3 (8-16); CARBON DIOXIDE 29.7 mmol/L (21-32); CREATININE 1.3 mg/dL (0.6-1.3)
[2021-12-02 06:09] LABS: MAGNESIUM 2.2 mg/dL (1.8-2.4); PHOSPHORUS 3.5 mg/dL (2.5-4.9)
--- NOTE | 2021-12-02 07:20 | NUR ---
ENDORSED PT TO DAY SHIFT RN FOR CONTINUITY OF CARE. PT IS STABLE.
[2021-12-02 08:00] VITALS: BP 117/84
[2021-12-02] MEDS: TAMSULOSIN 0.4 MG CAP PO SCH (08:46)
[2021-12-02] MEDS: lisinopriL 10 MG TAB PO SCH (08:47)
[2021-12-02] MEDS: SPIRONOLACTONE 25 MG TAB PO SCH (08:47)
[2021-12-02] MEDS: METOPROLOL 25 MG TAB PO SCH ×2 (08:48→22:42)
--- NOTE | 2021-12-02 10:54 | NUR ---
RESTING IN WITH NO DISTRESS NOTED.
[2021-12-02 12:00] VITALS: BP 115/68
[2021-12-02 16:00] VITALS: BP 97/76
[2021-12-02 20:00] VITALS: BP 118/72
--- NOTE | 2021-12-02 20:00 | NUR ---
RECEIVED REPORT FROM RN DAYSHIFT NURSE AT BEDSIDE FOR CONTINUITY OF CARE. PT UP AND WALKING AROUND TALKING WITH EVERYONE NON STOP. HE IS ON ROOM AIR AND HAS NO C/O OF PAIN. PT DID ALLOW HIS FINGERSTICK WHICH WAS 118. PT ATE ALL HIS SUPPER. OTHER V/S FOLLOWS: T 98.3 P 78 R 20 B/P 118/72 02 100%. IS STILL REFUSING HEAD CT UNLESS HE GETS A HEAVY SEDATIVE PT C/O THAT HE IS CLAUSTROPHOBIA. EXPLAINED THAT HEAD CT IS VERY SHORT, BUT PT STILL INSISTS THAT HE DECLINES THE TESTS. PT WAS VERBALLY REDIRECTED TO ROOM SEVERAL TIES BUT CONTINUES TO GET OUT OF ROOM TALKING WITH STAFF NONSTOP.
[2021-12-02] MEDS ORDERED: DIVALPROEX 500 MG TABEC PO SCH (21:00)
--- NOTE | 2021-12-02 22:00 | NUR ---
PT WAS GIVEN ORDERED MEDICATION OF LOPRESSOR, IVP LASIX; LIPITOR AND DEPAKOTE. PT DECLINED TO HAVE HEPARIN SQ SHOT, PROS AND CONS OF NOT TAKING MEDICATION PROVIDED , PT VERBALIZED UNDERSTANDING OF ORDERED MEDICATION. PT C/O OF FEELING DIRTY AND REQUESTING A SHOWER. WILL TEXT MD WITH PT REQUEST.
[2021-12-02 22:01] LABS: BARBITURATE, URINE NEGATIVE ng/ml (NEG <=200); BENZODIAZEPINE, URINE NEGATIVE ng/mL (NEG <=200); CANNABINOID, URINE NEGATIVE ng/mL (NEG <=50); COCAINE, URINE NEGATIVE ng/mL (NEG <=300); OPIATE, URINE NEGATIVE ng/mL (NEG <=2000); PHENCYCLIDINE SCREEN,URINE NEGATIVE ng/mL (NEG <=25)
[2021-12-02] MEDS: FUROSEMIDE 20 MG/2 ML VIAL IVP SCH (22:40)
[2021-12-02] MEDS: ATORVASTATIN 20 MG TAB PO SCH (22:41)
--- NOTE | 2021-12-02 23:00 | NUR ---
GAVE ORDER FOR SHOWER PRN. PT STAND BY ASSIST IN THE SHOWER. AFTER THE SHOWER , PT WAS AGREEABLE TO GO DOWN TO HAVE HEAD CT DONE.
--- NOTE | 2021-12-03 00:30 | NUR ---
AFTER RETURNING FROM HEAD CT, PT IV SITE WAS NOTED INFILTRATED. NEW I V SITE 24 GUAGE ON THE RIGHT F/A PROVIDED. PT WAS ALSO GIVEN REQUESTED SNACK.
--- NOTE | 2021-12-03 01:30 | NUR ---
PT RESTLESS LEAVING ROOM AND TALKING WITH EVERYBODY, PT WAS OFFERED ANOTHER ROOM WITHOUT ROOMMATE AND PT SAID THAT HE WOULD LAY DOWN AND GO TO SLEEP IF HE HAD HIS OWN ROOM . PT WAS TRANSFERRED TO ROOM 18. HE TURNED ON THE TV AND WENT TO BED. ALL UNIVERSAL FALLS PRECAUTIONS IN PLACE.
--- NOTE | 2021-12-03 02:00 | NUR ---
ROUNDS DONE PT IN BED RESTING WITH EYES CLOSED, PT ABLE TO BE AROUSED WITH TO LIGHT TOUCH, PT WAS GIVEN EXTRA BLANKET REQUESTED. ALL UNIVERSAL FALLS PRECAUTIONS IN PLACE.
[2021-12-03 04:00] VITALS: BP 107/68
--- NOTE | 2021-12-03 04:00 | NUR ---
PT IN BED ASLEEP BUT AWAKENS TO LIGHT TOUCH AND NAME. V/S IN NORMAL LIMITS ALL REQUESTED NEEDS ATTENDED AND ALL ORDERED PRECAUTIONS IN PLACE.
--- NOTE | 2021-12-03 06:00 | NUR ---
PT GIVEN IV LASIK PER ORDERED LAB DRAWS DONE AT BEDSIDE. PT HAS NO C/O VOICED AND ALL ORDERED PRECAUTIONS IN PLACE.
[2021-12-03] MEDS: FUROSEMIDE 20 MG/2 ML VIAL IVP SCH ×2 (06:28→13:00)
[2021-12-03 06:49] LABS: BASOPHILS % (AUTO) 0.7 % (0.0-2.0); EOSINOPHILS # (AUTO) 0.3 K/uL (0-0.4); EOSINOPHILS % (AUTO) 3.9 % (0.0-4.0); HEMATOCRIT 39.2 % (36-52); LYMPHOCYTES # (AUTO) 1.4 K/uL (2.0-11.5); LYMPHOCYTES % (AUTO) 20.4 % (20.5-51.1); MEAN CORPUSCULAR HEMOGLOBIN 31 pg (27-31); MEAN CORPUSCULAR HGB CONC 33 g/dL (33-37); MEAN CORPUSCULAR VOLUME 92.4 fL (80-94); MONOCYTES # (AUTO) 0.7 K/uL (0.8-1.0); MONOCYTES % (AUTO) 10.2 % (1.7-9.3); NEUTROPHILS # (AUTO) 4.4 K/uL (1.8-7.7); NEUTROPHILS % (AUTO) 64.8 % (42.2-75.2); PLATELET COUNT (AUTO) 200 K/uL (140-450); RED BLOOD CELL COUNT(AUTO) 4.24 MIL/uL (4.20-6.10); RED CELL DISTRIBUTION WIDTH 15.8 % (11.6-13.7); WHITE BLOOD COUNT (AUTO) 6.8 K/uL (4.8-10.8)
[2021-12-03 06:52] LABS: ANION GAP 10.7 (8-16); CARBON DIOXIDE 29.4 mmol/L (21-32); CREATININE 1.3 mg/dL (0.6-1.3); POTASSIUM 4.1 mmol/L (3.5-5.1)
[2021-12-03 07:00] LABS: MAGNESIUM 2.1 mg/dL (1.8-2.4); PHOSPHORUS 3.9 mg/dL (2.5-4.9)
--- NOTE | 2021-12-03 07:30 | NUR ---
RECEIVED REPORT FROM PENSION ADMINISTRATOR NURSE PATIENT LYING DOWN IN BED SLEEPING, AROUSABLE BY VOICE. ON ROOM AIR AND NO DISTRESS NOTED. DENIES ANY PAIN, DIZZINESS. IV SITE ON RFA 22G INTACT AND PATENT,SALINE LOCKED. SKIN IS WARM, DRY, AND INTACT. REVIEWED PLAN OF CARE. SAFETY MEASURES IN PLACE, BED IN LOW POSITION. CALL LIGHT WITHIN REACH. WILL CONTINUE TO MONITOR.
[2021-12-03 08:00] VITALS: BP 99/47
[2021-12-03] MEDS: lisinopriL 10 MG TAB PO SCH (08:51)
[2021-12-03] MEDS: SPIRONOLACTONE 25 MG TAB PO SCH (08:51)
[2021-12-03] MEDS: METOPROLOL 25 MG TAB PO SCH (08:51)
[2021-12-03] MEDS: TAMSULOSIN 0.4 MG CAP PO SCH (08:51)
--- NOTE | 2021-12-03 09:30 | NUR ---
ALL SCHEDULED MEDS GIVEN. PT IS STABLE. NO DISTRESS NOTED. WILL CONTINUE TO MONITOR
[2021-12-03] MEDS ORDERED: FURO-572 PO (09:49)
[2021-12-03] MEDS ORDERED: DIVA500E2 PO (09:49)
--- NOTE | 2021-12-03 11:15 | NUR ---
CHECKED ON PATIENT. PT IS STABLE. NO DISTRESS NOTED. WILL CONTINUE TO MONITOR.
[2021-12-03 11:58] VITALS: BP 101/48
--- NOTE | 2021-12-03 13:07 | NUR ---
ENDORSED DISCHARGE INSTRUCTIONS TO PATIENT. PT VERBALIZED UNDERSTANDING. PT WILL BE TRANSPORTED TO [facility].
--- NOTE | 2021-12-03 13:13 | NUR ---
TRANSPORTATION AT PATIENT'S BEDSIDE. REMOVED IV AND PT IS STABLE. PT DISCHARGED OFF THE UNIT.
== END 2021-12-03 13:15 | disposition home or self-care (01) | DRG 48 ==
LOC: MED 14:37 → MTU 18:29
DX: G90.8 Other disorders of autonomic nervous system (principal); N17.0 Acute kidney failure with tubular necrosis; I50.43 Acute on chronic combined systolic (congestive) and diastolic (congestive) heart failure; I13.0 Hypertensive heart and chronic kidney disease with heart failure and stage 1 through stage 4 chronic kidney disease, or unspecified chronic kidney disease; E78.5 Hyperlipidemia, unspecified; N40.0 Benign prostatic hyperplasia without lower urinary tract symptoms; E86.0 Dehydration; I25.10 Atherosclerotic heart disease of native coronary artery without angina pectoris; N18.9 Chronic kidney disease, unspecified; Z20.822 Contact with and (suspected) exposure to COVID-19
CPT/HCPCS: 36415; 70450; 71045; 76770; 80048; 80053; 80305; 81001; 82140; 82550; 82570; 82948; 83735; 83880; 84100; 84156; 84300; 84484; 85025; 87081; 93005; 93880; 96374; 96375; 97163-GP; 97530; 99285; J1644; J1940; J2270; J8597; Q0092